=== PATIENT | male | born 1950 ===

== ENCOUNTER 2020-05-23 09:45 | Inpatient (IN) | payer OTHER ==
[~2020-05-23] VITALS: Ht 162.6 cm; Wt 61.2 kg
[2020-05-23] MEDS ORDERED: LEVSIN/SL0.125 MG SL (13:54)
[2020-06-02] MEDS ORDERED: HYOSCYAMINE0.125 M1 SL (09:36)
[2020-06-02] MEDS ORDERED: ULTRACET PO (09:37)
[2020-06-02] MEDS ORDERED: INTESTINEX680 M1 PO (09:37)
== END 2020-06-02 13:46 | disposition home or self-care (01) | DRG 331 ==
LOC: O/R 05-30 06:34 → SURG 05-30 06:34 → SURH 05-30 09:00 → EDBD 05-30 09:45 → SURH 05-30 09:45 → SURG 05-30 13:16
PROVIDERS: ADMIT Surgery; ATTEND Surgery
PROC: 0DBN4ZZ Excision of Sigmoid Colon, Percutaneous Endoscopic Approach (ICD-10-PCS; 2020-05-30)
PROC: 07BC4ZX Excision of Pelvis Lymphatic, Percutaneous Endoscopic Approach, Diagnostic (ICD-10-PCS; 2020-05-30)
PROC: 0DJD8ZZ Inspection of Lower Intestinal Tract, Via Natural or Artificial Opening Endoscopic (ICD-10-PCS; 2020-05-30)
PROC: 0DTP4ZZ Resection of Rectum, Percutaneous Endoscopic Approach (ICD-10-PCS; principal; 2020-05-30 09:00)
DX: C19 Malignant neoplasm of rectosigmoid junction (principal); I95.2 Hypotension due to drugs; T39.8X5A Adverse effect of other nonopioid analgesics and antipyretics, not elsewhere classified, initial encounter

== ENCOUNTER 2020-09-16 11:00 | Inpatient (IN) | payer OTHER ==
[~2020-09-16] VITALS: Ht 162.6 cm; Wt 59.0 kg
[~2020-09-16 11:00] MED LIST: HYOSCYAMINE0.125 M1 SL; INTESTINEX680 M1 PO; LEVSIN/SL0.125 MG SL; ULTRACET PO
[2020-09-16] MEDS ORDERED: BENADRYL25 MG PO (13:08)
[2020-09-23] MEDS ORDERED: PERMETHRIN60 GM (08:33)
[2020-09-26] MEDS ORDERED: OXYC1TAB9 PO (14:09)
== END 2020-09-26 15:38 | disposition home or self-care (01) | DRG 349 ==
LOC: SURH 09-22 07:20 → EDSEX 09-22 07:20 → O/R 09-22 07:20 → SURG 09-22 07:20 → SURH 09-22 11:00 → O/R 09-22 19:14 → SURG 09-22 21:56
PROVIDERS: ADMIT Surgery; ATTEND Surgery
PROC: 3E0F7SF Introduction of Other Gas into Respiratory Tract, Via Natural or Artificial Opening (ICD-10-PCS; 2020-09-22)
PROC: 0DBB4ZZ Excision of Ileum, Percutaneous Endoscopic Approach (ICD-10-PCS; principal; 2020-09-22 07:00)
DX: Z43.2 Encounter for attention to ileostomy (principal); R59.0 Localized enlarged lymph nodes; K66.0 Peritoneal adhesions (postprocedural) (postinfection); Z85.048 Personal history of other malignant neoplasm of rectum, rectosigmoid junction, and anus

== ENCOUNTER 2021-04-25 07:25 | Day surgery (SDC) | payer OTHER ==
[~2021-04-25 07:25] MED LIST changes: +BENADRYL25 MG PO; +OXYC1TAB9 PO; +PERMETHRIN60 GM
== END 2021-04-25 13:05 | disposition home or self-care (01) ==
LOC: AMB-ENDOS 07:25
PROVIDERS: ATTEND Surgery
DX: D12.4 Benign neoplasm of descending colon (principal)